=== PATIENT | female | born 1940 | race Caucasian/White ===

== ENCOUNTER 2018-04-08 18:55 | Outpatient (CLI) | payer OTHER ==
[~2018-04-08 18:55] MED LIST: AVAPRO75 MG PO; CALTRATE 600 +1 EACH PO; FIORICET 50-301 EACH PO; FUROSEMIDE10 MG/1 M1 IV; METOPROLOL SUCC25 MG PO; [UNRECOGNIZED DRUG - OTHER] PO
== END 2018-04-08 20:18 | disposition home or self-care (01) ==
LOC: LAB 18:55
DX: D64.89 Other specified anemias (principal); M06.4 Inflammatory polyarthropathy

== ENCOUNTER 2018-04-13 09:58 | Outpatient (CLI) | payer OTHER | END 2018-04-13 10:06 | disposition home or self-care (01) | LOC: LAB 09:58 | DX: D64.89 Other specified anemias (principal); M06.4 Inflammatory polyarthropathy ==

== ENCOUNTER → 2018-04-29 | Outpatient (CLI) | payer OTHER | END | disposition home or self-care (01) | LOC: LAB 10:20 | DX: M06.4 Inflammatory polyarthropathy (principal); D64.89 Other specified anemias ==